=== PATIENT | female | born 1935 | race Caucasian/White ===

== ENCOUNTER 2015-12-31 10:33 | Outpatient (RCR) | payer MEDICARE, OTHER | END 2016-03-30 | disposition home or self-care (01) | LOC: LAB 10:33 | PROVIDERS: ATTEND Family Medicine | DX: Z51.81 Encounter for therapeutic drug level monitoring (principal); Z79.01 Long term (current) use of anticoagulants; I48.91 Unspecified atrial fibrillation | CPT/HCPCS: 36415; 85610 ==

== ENCOUNTER → 2016-04-23 | Outpatient (CLI) | payer MEDICARE, OTHER ==
[2016-04-23 17:07] VITALS: BP 137/79
== END ==
LOC: MHUC 16:19
PROVIDERS: ATTEND Physician Assistant
DX: J01.00 Acute maxillary sinusitis, unspecified (principal)
CPT/HCPCS: 99213